=== PATIENT | female | born 1985 | race American Indian/Alaskan Native ===

== ENCOUNTER 2018-09-13 17:37 | Emergency (ER) | payer MEDICAID, OTHER ==
[2018-09-13 18:14] VITALS: BP 141/75
[2018-09-13] MEDS ORDERED: IBUPROFEN PO ONE (22:33)
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
== END 2018-09-13 23:52 | disposition home or self-care (01) ==
LOC: ED 17:37
DX: S13.4XXA Sprain of ligaments of cervical spine, initial encounter (principal); V89.2XXA Person injured in unspecified motor-vehicle accident, traffic, initial encounter; Y93.89 Activity, other specified; Y92.488 Other paved roadways as the place of occurrence of the external cause; Y99.8 Other external cause status
CPT/HCPCS: 72040; 99283